=== PATIENT | female | born 1980 | race Caucasian/White ===

== ENCOUNTER 2023-05-01 09:10 | Emergency (ER) | payer OTHER, SELFPAY ==
[2023-05-01 09:10] VITALS: BP 149/83; PULSE 79; RESP 18; TEMP 36.1; O2SAT 97
--- NOTE | 2023-05-01 09:23 | ED.DENTAL ---
HPI - Dental/Oral General Chief complaint: Dental/Oral Stated complaint: gum and jaw pain Time Seen by Provider: 05/01/23 09:23 Source: patient, RN notes reviewed and old records reviewed Mode of arrival: ambulatory Limitations: no limitations History of Present Illness HPI Narrative: 43 year old female who presents to [facility] with complaints of gum swelling with pimple type of lesion on gum behind tooth #18 left lower gum. Patient reports that she has had previous extraction of wisdom teeth. Patient reports pain to area on her gum and to her jaw region on left side with some facial swelling. Patient has not taken any OTC medications for her discomfort. MD Complaint: tooth pain (gum swelling) Location: Tooth # (on gum behind #18 tooth) Onset (ago): day(s) (1) Severity scale (1-10): 9 Associated symptoms: gum swelling and other (face swelling) Treatment prior to arrival: other (ice to face) Related Data Home Medications Medication Instructions Recorded Confirmed diclofenac sodium 50 mg 50 mg PO DAILY 06/07/19 05/01/23 tablet,delayed release ergocalciferol (vitamin D2) 1,250 50,000 unit PO WEEKLY 06/07/19 05/01/23 mcg (50,000 unit) capsule (Vitamin D2) fenofibrate 54 mg tablet 54 mg PO DAILY 06/07/19 05/01/23 hydrochlorothiazide 25 mg tablet 25 mg PO DAILY 06/07/19 05/01/23 metoprolol tartrate 25 mg tablet 25 mg PO DAILY 06/07/19 05/01/23 bupropion HCl 150 mg tablet,12 hr 150 mg PO BID 05/01/23 05/01/23 sustained-release citalopram 40 mg tablet 40 mg PO DAILY 05/01/23 05/01/23 thyroid (pork) 90 mg tablet ([employer] CLERK 90 mg PO DAILY 05/01/23 05/01/23 Thyroid) Allergies Allergy/AdvReac Type Severity Reaction Status Date / Time ibuprofen Allergy Severe Anaphylactic Verified 05/01/23 09:20 Shock amoxicillin Allergy Intermediate Rash Verified 05/01/23 09:20 Review of Systems Review of Systems: CONSTITUTIONAL: Denies fever, chills, or sweats. ENT: Denies rhinorrhea, congestion, sore throat, or otalgia. Reports pain with lesion on left lower gum area behind #18 tooth with facial swelling. CARDIOVASCULAR: Denies chest pain, palpitations, or edema. RESPIRATORY: Denies cough or dyspnea. SKIN: Denies rash or itching. MUSCULOSKELETAL: Denies myalgia. NEUROLOGIC: Denies headache All systems reviewed & are unremarkable except as noted in HPI and below PMFSH Past Medical History Medical History (Updated 05/02/23 @ 00:01 by Gómez Dao) Anxiety and depression Bronchitis GERD (gastroesophageal reflux disease) Hyperlipidemia Hypertension Plantar fasciitis Surgical History Surgical History (Updated 05/01/23 @ 09:47 by Elizabeth Rivas NP) History of cholecystectomy History of endometrial ablation History of tubal ligation Previous section Social History Social History (Updated 05/01/23 @ 09:49 by Elizabeth Rivas NP) Smoking status: Never smoker Alcohol intake: current Alcohol use details: social Substance use type: does not use Living arrangements: with family Gender identity (if verbalized by the patient): Female Comments At time of signature, agree with nursing past medical, surgical, social and family history. There is no relevant family history pertinent to the presenting complaint Exam Narrative: GENERAL: Well-appearing, well-nourished, and in no acute distress. HEAD: Normocephalic, atraumatic. EYES: PERRLA and EOMI. ENT: Nares clear, no rhinorrhea or epistaxis. Mucous membranes moist. Lesion on left lower gum behind #18 tooth with redness and swelling, some jaw pain also with some swelling mild to face.no trismus or any Tavares angina noted. NECK: Supple. no lymphadenopathy CHEST: Clear to auscultation. No respiratory distress.SAO2 97% on room air HEART: Regular rate and rhythm. No murmur heard. Normal peripheral pulses. SKIN: Warm, dry, no rash. NEURO: No focal deficits. Alert and oriented x3. Course Course Emergency Course: Patient is aware of
[2023-05-01 09:26] VITALS: BP 149/83; PULSE 79; RESP 18; TEMP 36.1; O2SAT 97
== END 2023-05-01 09:38 | disposition home or self-care (01) ==
PROVIDERS: Emergency Provider Registered Nurse; PCP Nurse Practitioner Family
DX: K05.20 Aggressive periodontitis, unspecified (principal); K21.9 Gastro-esophageal reflux disease without esophagitis; E78.5 Hyperlipidemia, unspecified; I10 Essential (primary) hypertension; F41.9 Anxiety disorder, unspecified; F32.A Depression, unspecified
CPT/HCPCS: 99213; G0463